=== PATIENT | female | born 1965 | race African-American/Black ===

== ENCOUNTER 2017-10-03 16:32 | Emergency (ER) | payer MEDICAID ==
[~2017-10-03] VITALS: Ht 154.9 cm; Wt 75.7 kg
[2017-10-03 16:43] VITALS: BP_SYST 120
--- NOTE | 2017-10-03 16:53 | NUR ---
Patient to ER bed 3 to gown for evaluation. Side rails up. Report received from VIKY Ko.
--- NOTE | 2017-10-03 16:54 | NUR ---
Pt complains of pain to epigastric area for 3 months. Per patient, pain "is more intense when eating" and causes vomiting and diarrhea. Patient reports, the past month vomiting and diarrhea have been more happening more frequently. Pt states she is unsure of fever. No other injuries/complaints per patient or noted.
--- NOTE | 2017-10-03 16:58 | NUR ---
ER Dr. Paris at bedside examining patient.
[2017-10-03] MEDS: ONDANSETRON 4 MG ODT TAB PO ONE (17:09)
--- NOTE | 2017-10-03 17:09 | NUR ---
LAB at patient bedside obtaining blood work. Pt tolerated well.
--- NOTE | 2017-10-03 17:11 | NUR ---
Medication was given, pt tolerated well. NO adverse reaction, will continue to monitor.
--- NOTE | 2017-10-03 17:16 | NUR ---
Ultrasound at patient bedside. Pt tolerated well.
[2017-10-03 17:24] LABS: BASOPHILS # (AUTO) 0.1 K/uL (0.0-0.2); BASOPHILS % (AUTO) 0.5 % (0.0-2.0); EOSINOPHILS # (AUTO) 0.2 K/uL (0.0-0.4); EOSINOPHILS % (AUTO) 1.1 % (0.0-4.0); HEMATOCRIT 44.5 % (36-48); HEMOGLOBIN 14.6 g/dL (12.0-16.0); LYMPHOCYTES # (AUTO) 3.6 K/uL (1.0-5.5); LYMPHOCYTES % (AUTO) 23.6 % (20.5-51.5); MEAN CORPUSCULAR HEMOGLOBIN 29 pg (27-31); MEAN CORPUSCULAR HGB CONC 33 % (32-36); MEAN CORPUSCULAR VOLUME 89 fL (79.0-98.0); MONOCYTES # (AUTO) 1.2 K/uL (0.0-1.0); MONOCYTES % (AUTO) 7.9 % (1.7-9.3); NEUTROPHILS % (AUTO) 66.9 % (40.0-70.0); PLATELET COUNT (AUTO) 274 K/uL (130-430); RED BLOOD CELL COUNT(AUTO) 5.01 MIL/uL (4.2-6.2); RED CELL DISTRIBUTION WIDTH 14.2 % (9.0-15.0); WHITE BLOOD COUNT (AUTO) 15.1 K/uL (4.8-10.8)
[2017-10-03 17:31] LABS: CALCIUM 9.9 mg/dL (8.4-11.0); CREATININE 0.88 mg/dL (0.55-1.30)
[2017-10-03 17:36] LABS: ALBUMIN 3.3 g/dL (3.4-4.8); TOTAL BILIRUBIN 0.2 mg/dL (0.0-1.0)
[2017-10-03 17:59] VITALS: BP_SYST 121
--- NOTE | 2017-10-03 17:59 | NUR ---
Patient given written and verbal discharge instructions and verbalizes understanding. ER MD discussed with patient the results and treatment provided. Patient in stable condition. ID arm band removed. Rx of Zofran given. Patient educated on pain management and to follow up with PMD. Pain Scale 2. Opportunity for questions provided and answered.
== END 2017-10-03 17:59 | disposition home or self-care (01) ==
LOC: SED 16:32
DX: E11.43 Type 2 diabetes mellitus with diabetic autonomic (poly)neuropathy (principal); K31.84 Gastroparesis; I10 Essential (primary) hypertension; E78.00 Pure hypercholesterolemia, unspecified
CPT/HCPCS: 36415; 76700; 80053; 83690; 85025; 99285; Q0162

== ENCOUNTER 2018-11-25 12:50 | Emergency (ER) | payer OTHER, MEDICAID ==
[~2018-11-25] VITALS: Ht 154.9 cm; Wt 74.8 kg
[2018-11-25 13:12] VITALS: BP_SYST 117
[2018-11-25 13:30] VITALS: BP_SYST 117
== END 2018-11-25 13:30 | disposition home or self-care (01) ==
LOC: SED 12:50
DX: K02.9 Dental caries, unspecified (principal); L25.9 Unspecified contact dermatitis, unspecified cause; E78.00 Pure hypercholesterolemia, unspecified; E11.9 Type 2 diabetes mellitus without complications; I10 Essential (primary) hypertension; F17.200 Nicotine dependence, unspecified, uncomplicated
CPT/HCPCS: 99283